=== PATIENT | female | born 1955 ===

== ENCOUNTER 2019-03-03 18:28 | Emergency (ER) | payer OTHER ==
[2019-03-03] MEDS ORDERED: Ketorolac Tromethamine 60 MG/2 ML VIAL ONE (18:57)
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
== END 2019-03-03 19:35 | disposition home or self-care (01) ==
LOC: MADERS 18:28
DX: S06.0X0A Concussion without loss of consciousness, initial encounter (principal); S16.1XXA Strain of muscle, fascia and tendon at neck level, initial encounter; S39.012A Strain of muscle, fascia and tendon of lower back, initial encounter; V89.2XXA Person injured in unspecified motor-vehicle accident, traffic, initial encounter
CPT/HCPCS: 70450; 72125; 72128; 96372; J1885